=== PATIENT | male | born 2005 | race Two or more races ===

== ENCOUNTER 2025-08-10 03:51 | Emergency (ER) | payer SELFPAY ==
[2025-08-10 03:57] VITALS: BP 146/80; PULSE 61; RESP 18; TEMP 37; O2SAT 99; BMI 21.4
--- NOTE | 2025-08-10 04:12 | PD.EDANIML ---
ED Animal Bite RME/HPI General Chief Complaint: Animal Bite Stated Complaint: DOG BITE TO HAND FINGER Time Seen by Provider: 08/10/25 04:03 Arrival date/time: 08/10/25 03:51 19M with no significant PMH presents to ED with L index finger dog bite while at work. Patient has not had a tetanus shot in the past 5 years. Patient states small dog ran into his work facility. Limitations: no limitations Related Data Previous Rx's ?Medication ?Instructions ?Recorded amoxicillin 875 mg-potassium 1 tab PO BID 5 days #10 tabs 08/10/25 clavulanate 125 mg tablet Allergies Allergy/AdvReac Type Severity Reaction Status Date / Time No Known Allergies Allergy Verified 08/10/25 03:53 Review of Systems Review of Systems Systems Reviewed: All systems reviewed, normal except as documented Integumentary/Breasts Skin/Breast: Reports as per HPI and Reports skin pain Past Medical History Social History SMOKING STATUS: Current some day smoker ED Exam General Limitations: Present no limitations General appearance: Present alert and in no apparent distress Head Head exam: Present atraumatic Neck Neck exam: Present normal inspection, full ROM and trachea midline Chest Chest inspection: Present normal inspection and symmetric chest wall rise Extremities Exam Extremities exam: Present full ROM Expanded Upper Extremity Exam Hand exam: Present full ROM and laceration (small puncture wounds on L index finger) Neurological Exam Neurological exam: Present alert and oriented X3 Psychiatric Psychiatric exam: Present normal affect and normal mood Skin Skin exam: Present warm, dry, intact and normal color Course Quality Measures none Orders Category Date Time Status Wound Care NOW Care 08/10/25 04:03 Active Amoxicillin/Pot Clav 875 [Augmentin 875] Med 08/10/25 04:04 Discontinued 1 tab PO X1 ONE TET,DIP/PERT AC (Adult)-Tdap [Boostrix Adult (Tdap) Med 08/10/25 04:03 Discontinued Vacc] 0.5 ml IMI .ONCE ONE Vital Signs Vital signs: Vital Signs Temperature 98.6 F 08/10/25 03:57 Pulse Rate 61 08/10/25 03:57 Respiratory Rate 18 08/10/25 03:57 Blood Pressure 146/80 H 08/10/25 03:57 Pulse Oximetry (%) 99 08/10/25 03:57 Oxygen Delivery Method Room Air 08/10/25 03:57 O2 at 99% on RA and WNLs Animal Bite MDM Narrative MDM Narrative:: 19M with no significant PMH presents to ED with L index finger dog bite while at work. Patient has not had a tetanus shot in the past 5 years. Patient states small dog ran into his work facility. Physical exam reveals small puncture wounds on L index finger. ROM intact. Patient is afebrile, calm, and alert. Wound cleaned and bandaged. Tdap and ABX given. Patient data External records reviewed:: None Clinical information provided by:: patient Social determinants that could affect healthcare access:: none Patient has the following chronic illnesses:: none How is presenting disease/condition affected by chronic disease/condition?: no chronic disease Evaluation data The following diagnostics were reviewed and interpreted by me:: other (specify) (none) Lab and/or radiology exams considered but not ordered:: not ordered Interpretation Summary: n/a Medications / Prescriptions Medications or Prescriptions considered but not ordered:: ordered Medication administrations:: Medication Administration History Discontinued Medications Amoxicillin/Clavulanate Potassium (Amoxicillin/Pot Clav 875 Tablet) 1 tab PO X1 ONE Stop: 08/10/25 04:05 Diphtheria/Tetanus/Acell Pertussis (Diphth,Pertuss(Acell),Tet Vac 0.5 Ml Syr- Adult) 0.5 ml IMi .ONCE ONE Stop: 08/10/25 04:04 above Consultations Consultation(s) initiated? (list below): No Diagnosis Differential diagnosis animal bite: bite by animal, dog bite and rabies contact Most likely diagnosis given after review of the tests above:: dog bite Admission Indicated Admission indicated?: not indicated Admission Request Was there a request for admission?: No Disposition Plan Disposition Plan: Discharge Discharge Attestation Discharge Attestation: The patient and all family members were given an opportunity to ask questions and understood the discharge instructions. Discharge instructions specifically effects, indications for sooner follow up or return to the emergency department, and the expected course of current diagnosis. Patient condition: Stable Discharge Plan Plan Patient Disposition: HOME (Self Care) Discharge Disposition comment: Stable Prescriptions/Referrals Prescriptions/Med Rec: New amoxicillin-pot clavulanate 875-125 mg tablet 1 tab PO BID 5 Days Qty: 10 0RF Problem List Clinical Impression: Dog bite Patient/Caregiver Discharge Instructions Education Materials: ED Dog Bite Additional Instructions: Please follow-up with PCP within 24-48 hours and return immediately if symptoms worsen. Print Language: Nigerien Stand Alone Forms: Patient Portal Info Letter PA/SENIOR QUALITY ASSURANCE ENGINEER Supervising Physician PA/SENIOR QUALITY ASSURANCE ENGINEER Supervising Physician: Dr. Barber
[2025-08-10] MEDS: DIPHTH,PERTUSS(ACELL),TET VAC 0.5 ML SYR- ADULT IMi (04:29)
[2025-08-10] MEDS: AMOXICILLIN/POT CLAV 875 TABLET 1 TAB PO (04:29)
== END 2025-08-10 05:07 | disposition home or self-care (01) ==
LOC: SERX 05:00
PROVIDERS: Emergency Provider Emergency Medicine
DX: S61.251A Open bite of left index finger without damage to nail, initial encounter (principal); W54.0XXA Bitten by dog, initial encounter; Y99.0 Civilian activity done for income or pay; Z23 Encounter for immunization
CPT/HCPCS: 90471; 90715; 99283; A9270

== ENCOUNTER 2025-08-18 09:32 | Emergency (ER) | payer MEDICAID, SELFPAY ==
[2025-08-18 09:50] VITALS: BP 138/83; PULSE 60; RESP 17; TEMP 37.1; O2SAT 98
--- NOTE | 2025-08-18 09:58 | PD.EDANIML ---
ED Animal Bite RME/HPI General Chief Complaint: Animal Bite Stated Complaint: F/U DOG BITE Time Seen by Provider: 08/18/25 09:34 Arrival date/time: 08/18/25 09:32 19-year-old male presents to the emergency room today for for follow-up on dog bite patient was here on the . Limitations: no limitations Related Data Allergies Allergy/AdvReac Type Severity Reaction Status Date / Time No Known Allergies Allergy Verified 08/18/25 09:34 Review of Systems Review of Systems Systems Reviewed: All systems reviewed, normal except as documented Constitutional Constitutional: Reports system reviewed and no additional complaints, except as documented, Denies fever(s) and Denies headache(s) Eyes Eyes: Reports system reviewed and no additional complaints, except as documented and Denies blurry vision ENT Ears, Nose, Mouth, and Throat: Reports system reviewed and no additional complaints, except as documented, Denies headache(s), Denies nasal congestion and Denies nasal discharge Cardiovascular Cardiovascular: Reports system reviewed and no additional complaints, except as documented, Denies chest pain and Denies dyspnea Respiratory Respiratory: Reports system reviewed and no additional complaints, except as documented, Denies chest congestion, Denies cough and Denies dyspnea Gastrointestinal Gastrointestinal: Reports system reviewed and no additional complaints, except as documented and Denies abdominal pain Integumentary/Breasts Skin/Breast: Reports system reviewed and no additional complaints, except as documented, Denies rash and Reports wounds (Dog bite left index finger) Neurologic Neurologic: Reports system reviewed and no additional complaints, except as documented, Reports as per HPI and Denies headache(s) Past Medical History Social History SMOKING STATUS: Current some day smoker ED Exam General Limitations: Present no limitations General appearance: Present alert and in no apparent distress Head Head exam: Present atraumatic and normal inspection Eye Eye exam: Present normal appearance, PERRL and EOMI ENT ENT exam: Present normal exam, normal oropharynx and mucous membranes moist Neck Neck exam: Present normal inspection, full ROM and trachea midline Chest Chest inspection: Present normal inspection and symmetric chest wall rise Respiratory Respiratory exam: Present normal lung sounds bilaterally Cardiovascular Cardiovascular exam: Present regular rate, normal rhythm and normal heart sounds Abdominal Exam Abdominal exam: Present soft and normal bowel sounds Extremities Exam Extremities exam: Present full ROM, tenderness, normal capillary refill and other (Superficial dog bite healing left hand index finger) Back Exam Back exam: Present normal inspection and full ROM Neurological Exam Neurological exam: Present alert, oriented X3 and CN II-XII intact Psychiatric Psychiatric exam: Present normal affect and normal mood Skin Skin exam: Present warm, dry, intact and normal color Course Quality Measures none Vital Signs Vital signs: Vital Signs Temperature 98.7 F 08/18/25 09:50 Pulse Rate 60 08/18/25 09:50 Respiratory Rate 17 08/18/25 09:50 Blood Pressure 138/83 H 08/18/25 09:50 Pulse Oximetry (%) 98 08/18/25 09:50 Oxygen Delivery Method Room Air 08/18/25 09:50 O2 saturation 98% on room air within the limits Animal Bite MDM Narrative MDM Narrative:: 19-year-old male presents to the emergency room today for for follow-up on dog bite patient was here on the . On exam patient is full range of motion of all digits no cellulitis or abscess noted At this time no further treatment necessary Patient discharged home in no distress to follow-up with primary care doctor in the next 24 to 48 hours and for any worsening symptoms to return to the ER immediately Patient data External records reviewed:: [facility] previous records Clinical information provided by:: patient Social determinants that could affect healthcare access:: none Patient has the following chronic illnesses:: None How is presenting disease/condition affected by chronic disease/condition?: no chronic disease Evaluation data The following diagnostics were reviewed and interpreted by me:: other (specify) (N/A) Lab and/or radiology exams considered but not ordered:: Considered not ordered Interpretation Summary: N/A Medications / Prescriptions Medications or Prescriptions considered but not ordered:: No meds Medication administrations:: No meds Consultations Consultation(s) initiated? (list below): No Diagnosis Differential diagnosis animal bite: dog bite Most likely diagnosis given after review of the tests above:: Dog bite Admission Indicated Admission indicated?: not indicated Admission Request Was there a request for admission?: No Disposition Plan Disposition Plan: Discharge Discharge Attestation Discharge Attestation: The patient and all family members were given an opportunity to ask questions and understood the discharge instructions. Discharge instructions specifically effects, indications for sooner follow up or return to the emergency department, and the expected course of current diagnosis. Patient condition: Stable Discharge Plan Plan Patient Disposition: HOME (Self Care) Discharge Disposition comment: Stable Problem List Clinical Impression: Encounter for wound re-check Patient/Caregiver Discharge Instructions Education Materials: Wound Care Additional Instructions: Please follow up with your primary care doctor in the next 24-48hrs for any worsening symptoms return here immediately Print Language: Ghanaian Stand Alone Forms: Natasha Award Info., Patient Portal Info Letter PA/SUPERINTENDENT AMMUNITION STORAGE Supervising Physician PA/SUPERINTENDENT AMMUNITION STORAGE Supervising Physician: dr akers
== END 2025-08-18 10:11 | disposition home or self-care (01) ==
LOC: SERX 10:13
PROVIDERS: Emergency Provider Family Medicine
DX: S60.47 Other superficial bite of fingers (principal); W54.0XXD Bitten by dog, subsequent encounter
CPT/HCPCS: 99281

== ENCOUNTER 2025-09-01 12:50 | Emergency (ER) | payer OTHER, SELFPAY ==
--- NOTE | 2025-09-01 12:59 | EDNOTE_ITS ---
ED Animal Bite RME/HPI General Chief Complaint: Animal Bite Stated Complaint: HERE FOR RABBIES VACCINE FOR DOG BITE Time Seen by Provider: 09/01/25 12:54 Arrival date/time: 09/01/25 12:50 19-year-old male presents to the emergency department today stating he was bitten by dog August 10 on his left hand patient reports per [facility] patient needs rabies vaccinations Limitations: no limitations Related Data Allergies Allergy/AdvReac Type Severity Reaction Status Date / Time No Known Allergies Allergy Verified 09/01/25 12:54 Review of Systems Review of Systems Systems Reviewed: All systems reviewed, normal except as documented Constitutional Constitutional: Reports system reviewed and no additional complaints, except as documented, Denies fever(s) and Denies headache(s) Eyes Eyes: Reports system reviewed and no additional complaints, except as documented and Denies blurry vision ENT Ears, Nose, Mouth, and Throat: Reports system reviewed and no additional com plaints, except as documented, Denies headache(s), Denies nasal congestion and Denies nasal discharge Cardiovascular Cardiovascular: Reports system reviewed and no additional complaints, except as documented, Denies chest pain and Denies dyspnea Respiratory Respiratory: Reports system reviewed and no additional complaints, except as documented, Denies chest congestion, Denies cough and Denies dyspnea Gastrointestinal Gastrointestinal: Reports system reviewed and no additional complaints, except as documented and Denies abdominal pain Integumentary/Breasts Skin/Breast: Reports system reviewed and no additional complaints, except as documented and Denies rash Neurologic Neurologic: Reports system reviewed and no additional complaints, except as do cumented, Reports as per HPI and Denies headache(s) Past Medical History Past Medical History NEUROLOGIC: Negative Neurological Disorders CARDIAC: Negative Cardiac Disorders ED Exam General Limitations: Present no limitations General appearance: Present alert and in no apparent distress Head Head exam: Present atraumatic Eye Eye exam: Present normal appearance, PERRL and EOMI ENT ENT exam: Present normal exam, normal oropharynx and mucous membranes moist Neck Neck exam: Present normal inspection, full ROM and trachea midline Chest Chest inspection: Present normal inspection and symmetric chest wall rise Respiratory Respiratory exam: Present normal lung sounds bilaterally Cardiovascular Cardiovascular exam: Present regular rate, normal rhythm and normal heart sounds Abdominal Exam Abdominal exam: Present soft and normal bowel sounds Extremities Exam Extremities exam: Present normal inspection and full ROM Back Exam Back exam: Present normal inspection and full ROM Neurological Exam Neurological exam: Present alert, oriented X3 and CN II-XII intact Psychiatric Psychiatric exam: Present normal affect and normal mood Skin Skin exam: Present warm, dry, intact and normal color Course Quality Measures none Orders Category Date Time Status Rabies Vaccine (Pcec)/Pf [Rabavert Rabies Vacc w/ Med 09/01/25 12:55 Discontinued Diluent] 2.5 unit IM .ONCE ONE Vital Signs Vital signs: Vital Signs Temperature 98.9 F 09/01/25 13:04 Pulse Rate 65 09/01/25 13:04 Respiratory Rate 17 09/01/25 13:04 Blood Pressure 132/78 H 09/01/25 13:04 Pulse Oximetry (%) 99 09/01/25 13:04 Oxygen Delivery Method Room Air 09/01/25 13:04 O2 saturation 99% on room air within normal limits Animal Bite MDM Narrative MDM Narrative:: 19-year-old male presents to the emergency department today stating he was bitten by dog August 10 on his left hand patient reports per [facility] department patient needs rabies vaccinations Clinically patient well-appearing patient does not appear look toxic patient has no bruising or swelling Patient has no acute symptoms of any kind As [facility] said the patient here specifically for rabies vaccination patient will be vaccinated this time Patient data External records reviewed:: [facility] previous records Clinical information provided by:: patient Social determinants that could affect healthcare access:: none Patient has the following chronic illnesses:: None How is presenting disease/condition affected by chronic disease/condition?: no chronic disease Evaluation data The following diagnostics were reviewed and interpreted by me:: other (specify) Lab and/or radiology exams considered but not ordered:: Considered not indicated Interpretation Summary: N/A Medications / Prescriptions Medications or Prescriptions considered but not ordered:: Rabies vaccine Medication administrations:: Medication Administration History Discontinued Medications Rabies Vaccine Chick Embryo Cell (Rabies Vaccine (Pcec)/Pf 2.5 Unit/Ml Vial) 2.5 unit IM .ONCE ONE Stop: 09/01/25 12:56 Last Admin: 09/01/25 13:04 Dose: 2.5 unit Documented By: MIGUEL Rabies vaccine Consultations Consultation(s) initiated? (list below): No Diagnosis Differential diagnosis animal bite: bite by animal, dog bite and rabies contact Most likely diagnosis given after review of the tests above:: Dog bite Admission Indicated Admission indicated?: not indicated Admission Request Was there a request for admission?: No Disposition Plan Disposition Plan: Discharge Discharge Attestation Discharge Attestation: The patient and all family members were given an opportunity to ask questions and understood the discharge instructions. Discharge instructions specifically effects, indications for sooner follow up or return to the emergency department, and the expected course of current diagnosis. Patient condition: Stable Discharge Plan Plan Patient Disposition: HOME (Self Care) Discharge Disposition comment: Stable Problem List Clinical Impression: Dog bite Patient/Caregiver Discharge Instructions Additional Instructions: Please return for repeat vaccination 09/04 Print Language: Bahraini Stand Alone Forms: Natasha Award Info., Patient Portal Info Letter PA/SENIOR MANAGER CREATIVE SERVICES Supervising Physician PA/DONA Supervising Physician: dr fair
[2025-09-01 13:04] VITALS: BP 132/78; PULSE 65; RESP 17; TEMP 37.2; O2SAT 99
[2025-09-01] MEDS: RABIES VACCINE (PCEC)/PF 2.5 UNIT/ML VIAL IM (13:04)
== END 2025-09-01 13:25 | disposition home or self-care (01) ==
LOC: SERX 13:35
PROVIDERS: Emergency Provider Family Medicine
DX: Z23 Encounter for immunization (principal)
CPT/HCPCS: 90471; 90675; 99283

== ENCOUNTER 2025-09-04 11:57 | Emergency (ER) | payer MEDICAID, SELFPAY ==
[2025-09-04 12:23] VITALS: BP 118/73; PULSE 58; RESP 18; TEMP 36.8; O2SAT 99; BMI 23.8
--- NOTE | 2025-09-04 13:51 | EDNOTE_ITS ---
<Statement entered by Yahaira Bullard MD - 09/17/25 14:46> As co-signing physician, I was present and available for consult prn. I concur with the plan and care as documented by the midlevel provider. ED Animal Bite RME/HPI General Chief Complaint: Animal Bite Stated Complaint: HERE FOR 2ND RABBIES SHOT AFTER DOG BITE Time Seen by Provider: 09/04/25 12:25 Arrival date/time: 09/04/25 11:57 This is a 19-year-old male that comes into the emergency room because he states he needs a rabies shot. Patient had initial wound to left hand 1st and 2nd digit no abrasions no wounds noted no erythema. Related Data Allergies Allergy/AdvReac Type Severity Reaction Status Date / Time No Known Allergies Allergy Verified 09/04/25 11:59 Review of Systems Review of Systems Systems Reviewed: All systems reviewed, normal except as documented Past Medical History Past Medical History NEUROLOGIC: Negative Neurological Disorders CARDIAC: Negative Cardiac Disorders Social History SMOKING STATUS: Never smoker ED Exam Narrative Physical exam: VITAL SIGNS: Reviewed. GENERAL APPEARANCE: Alert and interactive, follows commands, no acute distress HEAD AND FACE: Non-traumatic. ENT: PERRL, conjuctiva pink and clear, eyelid no trauma, Mucous membrane moist. NECK: Supple, nontender, no nuchal rigidity. CHEST: No tenderness, no crepitus, no paradoxical movement, no retractions. LUNGS: breathing even and unlabored HEART: Regular rate, cap refill less than 2 seconds ABDOMEN: Soft, nondistended, no guarding, nontender, no rebound, no masses, NEUROLOGICAL: Gross motor function intact sensory function intact, Appropriate for age. MUSCULOSKELETAL: low back nontender, full range of motion EXTREMITIES: No redness no swelling no skin breakdown on bilateral foot and leg. Distal neurovascular status intact bilateral foot SKIN: Color pink, dry Course Quality Measures none Orders Category Date Time Status Rabies Vaccine (Pcec)/Pf [Rabavert Rabies Vacc w/ Med 09/04/25 13:55 Discontinued Diluent] 2.5 unit IM .ONCE ONE Vital Signs Vital signs: Vital Signs Temperature 98.2 F 09/04/25 12:23 Pulse Rate 58 L 09/04/25 12:23 Respiratory Rate 18 09/04/25 12:23 Blood Pressure 118/73 09/04/25 12:23 Pulse Oximetry (%) 99 09/04/25 12:23 Oxygen Delivery Method Room Air 09/04/25 12:23 Animal Bite MDM Narrative MDM Narrative:: Patient was already previously instructed to come back for his rabies vaccine on September 04, September 08 and then September 15. Patient tolerated vaccine well with no issues. Follow up with primary provider in 1-2 days. Come back to ED if symptoms change or worsen Gayleon dictation: Although this document has been carefully reviewed, there may still be some phonetic and other typographical errors. These errors are purely grammatical due to imperfections in the software program and should not be construed in any way to compromise the substance of the patient's medical care during this visit. Patient data External records reviewed:: [facility] previous records Clinical information provided by:: patient Social determinants that could affect healthcare access:: none Patient has the following chronic illnesses:: None How is presenting disease/condition affected by chronic disease/condition?: no chronic disease Evaluation data The following diagnostics were reviewed and interpreted by me:: other (specify) Lab and/or radiology exams considered but not ordered:: None Interpretation Summary: See note Medications / Prescriptions Medications or Prescriptions considered but not ordered:: None Medication administrations:: Medication Administration History Discontinued Medications Rabies Vaccine Chick Embryo Cell (Rabies Vaccine (Pcec)/Pf 2.5 Unit/Ml Vial) 2.5 unit IM .ONCE ONE Stop: 09/04/25 13:56 Last Admin: 09/04/25 14:14 Dose: 2.5 unit Documented By: OA See MAR Consultations Consultation(s) initiated? (list below): No Diagnosis Differential diagnosis animal bite: bite by animal and other Most likely diagnosis given after review of the tests above:: Need for rabies vaccine Admission Indicated Admission indicated?: not indicated Admission Request Was there a request for admission?: No Disposition Plan Disposition Plan: Discharge Discharge Attestation Discharge Attestation: The patient and all family members were given an opportunity to ask questions and understood the discharge instructions. Discharge instructions specifically effects, indications for sooner follow up or return to the emergency department, and the expected course of current diagnosis. Patient condition: Stable Discharge Plan Plan Patient Disposition: HOME (Self Care) Patient condition on transfer: Stable Prescriptions/Referrals Referrals: No Primary/Family,Physician [Primary Care Provider] - In 1 week Problem List Clinical Impression: Dog bite, Rabies vaccine administered Patient/Caregiver Discharge Instructions Discharge Activity: activity as tolerated Education Materials: ED Dog Bite, What Vaccines Should You and Your Family Have Additional Instructions: Negrito un javed con young medico de cabecera en las proximas 24-48 horas. Regrese a la medina de emergencias si hay evidencia de que los signos o sintomas empeoran. Print Language: Wolof Stand Alone Forms: Natasha Award Info., Patient Portal Info Letter PA/SUGAR GRINDER Supervising Physician PA/SUGAR GRINDER Supervising Physician: nicolette
[2025-09-04] MEDS: RABIES VACCINE (PCEC)/PF 2.5 UNIT/ML VIAL IM (14:14)
== END 2025-09-04 14:59 | disposition home or self-care (01) ==
PROVIDERS: Emergency Provider Emergency Medicine
DX: Z23 Encounter for immunization (principal)
CPT/HCPCS: 90471; 90675; 99281

== ENCOUNTER 2025-09-08 10:37 | Emergency (ER) | payer MEDICAID, SELFPAY ==
[2025-09-08 10:39] VITALS: BMI 23.9
[2025-09-08 10:47] VITALS: BP 115/63; PULSE 63; RESP 16; TEMP 36.9; O2SAT 99
[2025-09-08] MEDS: RABIES VACCINE (PCEC)/PF 2.5 UNIT/ML VIAL IM (11:06)
--- NOTE | 2025-09-08 11:14 | PD.EDADULT ---
ED General RME/HPI General Chief complaint: Recheck/Abnormal Lab/Rx Stated complaint: here for rabies shot Time Seen by Provider: 09/08/25 10:49 Arrival date/time: 09/08/25 10:37 19-year-old male presents to the emergency department today for repeat rabies vaccination Limitations: no limitations Related Data Allergies Allergy/AdvReac Type Severity Reaction Status Date / Time No Known Allergies Allergy Verified 09/04/25 11:59 Review of Systems Review of Systems Systems Reviewed: All systems reviewed, normal except as documented Constitutional Constitutional: Reports system reviewed and no additional complaints, except as documented, Denies fever(s) and Denies headache(s) Eyes Eyes: Reports system reviewed and no additional complaints, except as documented and Denies blurry vision ENT Ears, Nose, Mouth, and Throat: Reports system reviewed and no additional complaints, except as documented, Denies headache(s), Denies nasal congestion and Denies nasal discharge Cardiovascular Cardiovascular: Reports system reviewed and no additional complaints, except as documented, Denies chest pain and Denies dyspnea Respiratory Respiratory: Reports system reviewed and no additional complaints, except as documented, Denies chest congestion, Denies cough and Denies dyspnea Gastrointestinal Gastrointestinal: Reports system reviewed and no additional complaints, except as documented and Denies abdominal pain Integumentary/Breasts Skin/Breast: Reports system reviewed and no additional complaints, except as documented and Denies rash Neurologic Neurologic: Reports system reviewed and no additional complaints, except as documented, Reports as per HPI and Denies headache(s) Past Medical History Past Medical History NEUROLOGIC: Negative Neurological Disorders CARDIAC: Negative Cardiac Disorders Social History SMOKING STATUS: Never smoker ED Exam General Limitations: Present no limitations General appearance: Present alert and in no apparent distress Head Head exam: Present atraumatic Eye Eye exam: Present normal appearance, PERRL and EOMI ENT ENT exam: Present normal exam, normal oropharynx and mucous membranes moist Neck Neck exam: Present normal inspection, full ROM and trachea midline Chest Chest inspection: Present normal inspection and symmetric chest wall rise Respiratory Respiratory exam: Present normal lung sounds bilaterally Cardiovascular Cardiovascular exam: Present regular rate, normal rhythm and normal heart sounds Abdominal Exam Abdominal exam: Present soft and normal bowel sounds Extremities Exam Extremities exam: Present normal inspection and full ROM Back Exam Back exam: Present normal inspection and full ROM Neurological Exam Neurological exam: Present alert, oriented X3 and CN II-XII intact Psychiatric Psychiatric exam: Present normal affect and normal mood Skin Skin exam: Present warm, dry, intact and normal color Course Quality Measures none Orders Category Date Time Status Rabies Vaccine (Pcec)/Pf [Rabavert Rabies Vacc w/ Med 09/08/25 10:56 Discontinued Diluent] 2.5 unit IM .ONCE ONE Vital Signs Vital signs: Vital Signs Temperature 98.4 F 09/08/25 10:47 Pulse Rate 63 09/08/25 10:47 Respiratory Rate 16 09/08/25 10:47 Blood Pressure 115/63 09/08/25 10:47 Pulse Oximetry (%) 99 09/08/25 10:47 Oxygen Delivery Method Room Air 09/08/25 10:47 O2 saturation 99% on room air within the limits Discharge Plan Plan Patient Disposition: HOME (Self Care) Discharge Disposition comment: Stable Problem List Clinical Impression: Dog bite, Rabies vaccine administered Patient/Caregiver Discharge Instructions Additional Instructions: Please return in 1 week for your final vaccination Print Language: Mauritanian Stand Alone Forms: [employer] Award Info., Patient Portal Info Letter PA/FERTILIZING MACHINE OPERATOR Supervising Physician PA/FERTILIZING MACHINE OPERATOR Supervising Physician: Dr. Barnett MDM Narrative MDM hospital course (for use when minimal MDM required): 19-year-old male presents to the emergency department today for repeat rabies vaccination On exam patient well-appearing patient does not appear look toxic no acute distress Patient given rabies vaccination Patient struck to return in 1 week for final rabies vaccination Clinical Information Provided by: patient Medical Records reviewed [facility] Meds/Rx considered, not ordered None Labs/Rad/Tests considered, not ordered None Chronic Illness/Social Conditions which may negatively complicate care or outcome(s)-explain: None or not applicable EKG EKG not done Labs Labs: none Imaging Imaging interpretation: none Medication Administration(s) Medication Administration History Discontinued Medications Rabies Vaccine Chick Embryo Cell (Rabies Vaccine (Pcec)/Pf 2.5 Unit/Ml Vial) 2.5 unit IM .ONCE ONE Stop: 09/08/25 10:57 Last Admin: 09/08/25 11:06 Dose: 2.5 unit Documented By: Given Diagnosis Differential Diagnosis ED Complaint MDM: Rabies vaccination, dog bite
== END 2025-09-08 11:57 | disposition home or self-care (01) ==
PROVIDERS: Emergency Provider Nurse Practitioner Primary Care
DX: Z23 Encounter for immunization (principal); Z20.3 Contact with and (suspected) exposure to rabies
CPT/HCPCS: 90471; 90675; 99281

== ENCOUNTER 2025-09-15 10:03 | Emergency (ER) | payer MEDICAID, SELFPAY ==
[2025-09-15 10:12] VITALS: BP 128/77; PULSE 62; RESP 18; TEMP 36.8; O2SAT 97; BMI 23.6
[2025-09-15] MEDS: RABIES VACCINE (PCEC)/PF 2.5 UNIT/ML VIAL IM (10:17)
--- NOTE | 2025-09-15 10:36 | PD.EDADULT ---
ED General RME/HPI General Chief complaint: General Adult/Misc Complain Stated complaint: NEEDS LAST RABBIES SHOT Time Seen by Provider: 09/15/25 10:06 Arrival date/time: 09/15/25 10:03 19-year-old male presents to the emergency department today for repeat rabies vaccination today as patient is the last rabies vaccination Limitations: no limitations Related Data Allergies Allergy/AdvReac Type Severity Reaction Status Date / Time No Known Allergies Allergy Verified 09/15/25 10:05 Review of Systems Review of Systems Systems Reviewed: All systems reviewed, normal except as documented Constitutional Constitutional: Reports system reviewed and no additional complaints, except as documented, Denies fever(s) and Denies headache(s) Eyes Eyes: Reports system reviewed and no additional complaints, except as documented and Denies blurry vision ENT Ears, Nose, Mouth, and Throat: Reports system reviewed and no additional complaints, except as documented, Denies headache(s), Denies nasal congestion and Denies nasal discharge Cardiovascular Cardiovascular: Reports system reviewed and no additional complaints, except as documented, Denies chest pain and Denies dyspnea Respiratory Respiratory: Reports system reviewed and no additional complaints, except as documented, Denies chest congestion, Denies cough and Denies dyspnea Gastrointestinal Gastrointestinal: Reports system reviewed and no additional complaints, except as documented and Denies abdominal pain Integumentary/Breasts Skin/Breast: Reports system reviewed and no additional complaints, except as documented and Denies rash Neurologic Neurologic: Reports system reviewed and no additional complaints, except as documented, Reports as per HPI and Denies headache(s) Past Medical History Past Medical History NEUROLOGIC: Negative Neurological Disorders CARDIAC: Negative Cardiac Disorders Social History SMOKING STATUS: Current every day smoker ED Exam General Limitations: Present no limitations General appearance: Present alert and in no apparent distress Head Head exam: Present atraumatic Eye Eye exam: Present normal appearance, PERRL and EOMI ENT ENT exam: Present normal exam, normal oropharynx and mucous membranes moist Neck Neck exam: Present normal inspection, full ROM and trachea midline Chest Chest inspection: Present normal inspection and symmetric chest wall rise Respiratory Respiratory exam: Present normal lung sounds bilaterally Cardiovascular Cardiovascular exam: Present regular rate, normal rhythm and normal heart sounds Abdominal Exam Abdominal exam: Present soft and normal bowel sounds Extremities Exam Extremities exam: Present normal inspection and full ROM Back Exam Back exam: Present normal inspection and full ROM Neurological Exam Neurological exam: Present alert, oriented X3 and CN II-XII intact Psychiatric Psychiatric exam: Present normal affect and normal mood Skin Skin exam: Present warm, dry, intact and normal color Course Quality Measures none Orders Category Date Time Status Rabies Vaccine (Pcec)/Pf [Rabavert Rabies Vacc w/ Med 09/15/25 10:07 Discontinued Diluent] 2.5 unit IM .ONCE ONE Vital Signs Vital signs: Vital Signs Temperature 98.3 F 09/15/25 10:12 Pulse Rate 62 09/15/25 10:12 Respiratory Rate 18 09/15/25 10:12 Blood Pressure 128/77 09/15/25 10:12 Pulse Oximetry (%) 97 09/15/25 10:12 Oxygen Delivery Method Room Air 09/15/25 10:12 Discharge Plan Plan Patient Disposition: HOME (Self Care) Discharge Disposition comment: Stable Problem List Clinical Impression: Dog bite, Encounter for repeat administration of rabies vaccination Patient/Caregiver Discharge Instructions Education Materials: ED Dog Bite Additional Instructions: Please follow up with your primary care doctor in the next 24-48hrs for any worsening symptoms return here immediately Print Language: Belarusian Stand Alone Forms: [employer] Info., Patient Portal Info Letter PA/TELEPHONE SURVEYOR Supervising Physician PA/TELEPHONE SURVEYOR Supervising Physician: Dr. Patel MDM Narrative MDM hospital course (for use when minimal MDM required): 19-year-old male presents to the emergency department today for repeat rabies vaccination On exam patient well-appearing patient does not appear look toxic no acute distress Patient given rabies vaccination Patient struck to return for emergent concerns Clinical Information Provided by: patient Medical Records reviewed [facility] Labs/Rad/Tests considered, not ordered None Chronic Illness/Social Conditions which may negatively complicate care or outcome(s)-explain: None or not applicable EKG EKG not done Labs Labs: none Imaging Imaging interpretation: none Medication Administration(s) Medication Administration History Discontinued Medications Rabies Vaccine Chick Embryo Cell (Rabies Vaccine (Pcec)/Pf 2.5 Unit/Ml Vial) 2.5 unit IM .ONCE ONE Stop: 09/15/25 10:08 Last Admin: 09/15/25 10:17 Dose: 2.5 unit Documented By: MIGUEL Given Diagnosis Differential Diagnosis ED Complaint MDM: Rabies, encounter for rabies vaccination, dog bite
== END 2025-09-15 10:25 | disposition home or self-care (01) ==
LOC: SERX 10:34
PROVIDERS: Emergency Provider Emergency Medicine
DX: Z23 Encounter for immunization (principal); Z20.3 Contact with and (suspected) exposure to rabies
CPT/HCPCS: 90471; 90675; 99281